=== PATIENT | female | born 1995 | race Caucasian/White ===

== ENCOUNTER → 2018-01-29 | Outpatient (CLI) | payer BC, OTHER ==
--- NOTE | 2018-01-30 14:04 | US ---
EXAMINATION TYPE: US abdomen complete DATE OF EXAM: 01/29/2018 COMPARISON: NONE CLINICAL HISTORY: R10.817 abdominal tenderness. general abd pain. Abn labs. EXAM MEASUREMENTS: Liver Length: 12.4 cm Gallbladder Wall: 0.2 cm CBD: 0.3 cm CHD: 0.4 cm Spleen: 9.7 cm Right Kidney: 10.6 x 4.9 x 3.2 cm Left Kidney: 11.1 x 4.7 x 4.5 cm Pancreas: wnl Liver: wnl Gallbladder: folds seen supine. Evidence for sonographic Greenfield's sign: neg CBD: wnl CHD: wnl Spleen: wnl Right Kidney: Prominent pyramids Left Kidney: prominent pyramids Upper IVC: wnl Abd Aorta: wnl IMPRESSION: 1. Some prominence of the renal pyramids. 2. Abdomen ultrasound is otherwise unremarkable.
== END | disposition home or self-care (01) ==
LOC: RADUSWWP 15:26
PROVIDERS: ATTEND Family Medicine
DX: R10.817 Generalized abdominal tenderness (principal); R94.8 Abnormal results of function studies of other organs and systems
CPT/HCPCS: 76700